=== PATIENT | female | born 1965 | race Caucasian/White ===

== ENCOUNTER 2018-08-03 12:00 | Emergency (ER) | payer BC ==
[2018-08-03] MEDS ORDERED: MORPHINE SULFATE 10 MG/ML VIAL IVP ONE ×2 (12:24→13:27)
[2018-08-03] MEDS ORDERED: ONDANSETRON HCL IV 4 MG/2 ML VIAL IVP ONE (12:24)
--- NOTE | 2018-08-03 12:33 | Emergency Department Record ---
History of Present Illness - General Chief Complaint: Fall Injury Stated Complaint: Fell down 6 stairs Time Seen by Provider: 08/03/18 12:18 Source: Patient Mode of Arrival: Wheelchair Limitations: No limitations - History of Present Illness Initial Comments: The patient is here due to L lower leg pain. She tripped and fell down 5-6 steps just prior to presenting here at [facility]. The patient denies any head or neck injury or pain and is mainly complaining of L ankle pain. She has been unable to weight bear on the L leg due to the ankle pain. She also is having mild L knee pain and R upper back pain by her scapula. She denies any CP, SOB, JAIME, CAPONE, or neck pain and is not on blood thinners. 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[employer] Fall Witnessed: Yes, by family Place Fall Occurred: Home Loss of Consciousness: None Prolonged Down Time?: No Symptoms Prior to Fall: None Severity scale (1-10): 7 Quality: Other Context: Other Associated Symptoms: Unable to walk - Related Data Home Medications Medication Instructions Recorded Confirmed Last Taken Aspirin [Aspir-Low] 81 mg PO DAILY 08/03/18 08/03/18 Unknown Atorvastatin Calcium 40 mg PO DAILY 08/03/18 08/03/18 Unknown Bumetanide [Bumex] 1 mg PO DAILY 08/03/18 08/03/18 Unknown Lisinopril 10 mg PO DAILY 08/03/18 08/03/18 Unknown Metformin HCl 1,000 mg PO BID 08/03/18 08/03/18 Unknown Metoprolol Tartrate 25 mg PO DAILY 08/03/18 08/03/18 Unknown Allergies Allergy/AdvReac Type Severity Reaction Status Date / Time No Known Drug Allergies Allergy Verified 01/01/16 14:16 Travel Screening - Travel/Exposure Within Last 30 Days Have you traveled within the last 30 days?: No Review of Systems Constitutional: Denies: Chills, Fever Eyes: Denies: Eye discharge ENT: Denies: Congestion Respiratory: Denies: Cough, Dyspnea Cardiovascular: Denies: Arrhythmia Endocrine: Denies: Fatigue Gastrointestinal: Denies: Abdominal pain Genitourinary: Denies: Dysuria Musculoskeletal: Reports: Back pain Past Medical History - SOCIAL HISTORY Smoking Status: Never smoker Alcohol Use: None Drug Use: None - RESPIRATORY Hx Respiratory Disorders: Yes 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) - CARDIOVASCULAR Hx Cardio Disorders: Yes Hx Abnormal EKG: Yes (2012) Hx Cardiac Cath: Yes (08/08) Hx Chest Pain: Yes (HX OF CHEST PAIN PRIOR TO HEART ATTACK, NONE SINCE SX) Hx CHF: Yes Hx Deep Vein Thrombosis: Yes (2012) Hx Edema: Yes (ANKLES) Hx Heart Attack: Yes (2012) Hx Hypertension: Yes Hx Coronary Artery Disease: Yes Hx Coronary Artery Bypass Graft: Yes (10/08) Hx Coronary Stent: Yes (07/2013) - NEURO Hx Neuro Disorders: No - GI Hx GI Disorders: No Hx Ulcer: Yes (2011) - Hx Genitourinary Disorders: Yes Hx Kidney Stones: Yes () - ENDOCRINE Hx Endocrine Disorders: No - MUSCULOSKELETAL Hx Musculoskeletal Disorders: Yes Hx Arthritis: Yes (OSTEOARTHRITIS RT KNEE) - PSYCH Hx Psych Problems: No - HEMATOLOGY/ONCOLOGY Hx Hematology/Oncology Disorders: Yes Hx Clotting Problems: Yes (HX: DVT/PE) Hx Unexplained Bleeding: Yes Hx Blood Transfusions: Yes (2012 PRIOR TO CABG) Family Medical History Any Significant Family History?: Yes Family Hx Comment (NOT TO BE USED IN PLACE OF ITEMS BELOW): HEART DISEASE Hx Heart Disease: Father, Mother, Brother/Sister Hx HTN: Father, Mother Physical Exam - General General Appearance: Alert, Oriented x3, Cooperative, No acute distress - Head Head exam: Atraumatic, Normocephalic, Normal inspection - Eye Eye exam: Normal appearance, PERRL, EOMI - Neck Neck exam: Normal inspection, Full ROM. negative: Tenderness - Respiratory Respiratory exam: Normal lung sounds bilaterally, Chest wall tenderness (Over the R superior ribs posteriorly.). negative: Respiratory distress - Cardiovascular Cardiovascular Exam: Regular rate, Normal rhythm, Normal heart sounds - GI/Abdominal GI/Abdominal exam: Soft, Normal bowel sounds. negative: Distended, Rigid, Tenderness - Extremities Extremities exam: Tenderness (There is significant tenderness to palpation over the L ankle medially and knee laterally. ), Other (The L foot is NVI with normal pulses.). negative: Normal inspection Image of Full Body: 1 - Mild pain and tenderness. 2 - Significant pain and tenderness. 3 - Mild pain and tenderness. - Back Back exam: Reports: Normal inspection - Neurological Neurological exam: Abnormal gait, Alert, Oriented X3. negative: Altered, Motor sensory deficit, Normal gait - Psychiatric Psychiatric exam: negative: Anxious - Skin Skin exam: negative: Rash Course Vital Signs 08/03/18 12:06 Temperature 98.6 F Pulse Rate 68 Respiratory 22 Rate Blood Pressure 150/65 Pulse Ox 97 - Reevaluation(s) Reevaluation #1: Due to the unstable L leg fx I do believe the patient will need to see an Orthopedic doctor. The patient would like to go to [facility] so I did discuss the case with Dr. Vasquez in the ER and she does accept the patient in an ER to ER transfer. 08/03/18 13:33 Medical Decision Making - Data Complexity MDM Data: X-Ray Ordered and/or Reviewed - Radiology Data Radiology results: Report reviewed (CXR: Neg for acute changes. L knee: Proximal fibula fx, oblique and mild displacement. L ankle: Medial and posterior malleolus fx's with slight mortise widening.) Disposition Disposition: Transfer Clinical Impression: Leg fracture, left Qualifiers: Encounter type: initial encounter Fracture type: closed Qualified Code(s): S82.92XA - Unspecified fracture of left lower leg, initial encounter for closed fracture Disposition: Acute Care Hospital Transfer Transfer To: [facility] Reason For Transfer: Orthopedics Accepting Physician: Pedro Time Discussed w/Accepting Physician: 13:35 Condition: (2) Stable Forms: Patient Portal Access Time of Disposition: 13:35 Quality - Quality Measures Quality Measures: N/A - Blood Pressure Screening View Details: Yes Does Patient Have Any of the Following: Active Dx of HTN Blood Pressure Classification: Hypertensive Reading Systolic Measurement: 150 Diastolic Measurement: 65 Screening for High Blood Pressure: Patient Exclusion, Hx of HTN [[id number]]
--- NOTE | 2018-08-06 09:51 | RADIOLOGY REPORT ---
EXAM: CHEST, TWO VIEWS HISTORY: PATIENT FELL DOWN SIX STAIRS. PRIOR OPEN HEART SURGERY. TECHNIQUE: AP and lateral sitting semi-upright views of the chest were obtained. Comparison: Two view chest 06/18/18. FINDINGS: Mild cardiomegaly. Postop sternotomy as before. There is some mild diffuse interstitial prominence today, more pronounced than before. Findings may represent some mild interstitial edema. No actual pleural effusion is seen. No pneumothorax evident and no acute alveolar infiltrate is seen. Hypertrophic spurring in the mid to lower thoracic spine. IMPRESSION: 1. POSTOP STERNOTOMY BEFORE. 2. MILD CARDIOMEGALY WITH MILD DIFFUSE INTERSTITIAL PROMINENCE COULD REPRESENT SOME MILD INTERSTITIAL EDEMA. NO ACUTE ALVEOLAR INFILTRATE SEEN. JOB NUMBER: [id number] MTDD
--- NOTE | 2018-08-06 10:13 | RADIOLOGY REPORT ---
EXAM: LEFT ANKLE HISTORY: ACUTE LEFT ANKLE AND LEFT KNEE PAIN, PATIENT FELL DOWN STAIRS. TECHNIQUE: Three views of the left ankle were obtained. Comparison: None. Encounter: Initial. FINDINGS: There is a comminuted and mildly displaced fracture of the medial malleolus with the major malleolar fracture fragment displaced slightly laterally. There appears to be corresponding slight lateral subluxation of the talus on the tibia suggesting some significant ligamentous injury at the ankle as well. Questionable undisplaced posterior malleolar fracture. No lateral malleolar fracture evident. Calcaneal spurs both posteriorly and along the plantar surface. Diffuse soft tissue swelling at the ankle. IMPRESSION: 1. COMMINUTED MILDLY DISPLACED FRACTURE OF THE MEDIAL MALLEOLUS. 2. MILD LATERAL SUBLUXATION OF THE TALUS ON THE TIBIA. 3. QUESTIONABLE UNDISPLACED POSTERIOR MALLEOLAR FRACTURE. 4. DIFFUSE SOFT TISSUE SWELLING. JOB NUMBER: [id number] MTDD
--- NOTE | 2018-08-06 10:26 | RADIOLOGY REPORT ---
EXAM: LEFT KNEE HISTORY: PATIENT FELL DOWN SEVERAL STAIRS WITH LEFT KNEE PAIN. TECHNIQUE: AP and lateral views of the left knee were obtained with a total of five images obtained in the AP and lateral projections. Comparison: No prior left knee series. Encounter: Initial. FINDINGS: Note is made of an oblique fracture of the upper shaft of the fibula with slight anterior displacement of the distal fibular fracture fragment by about 5 mm. No fracture of the proximal tibia seen. Lateral views are rotated and the AP views are centered relatively low with resulting somewhat poor visualization of the knee joint itself. No definite fracture of the femur or patella seen, but a routine complete left knee series centered at the knee would be useful to more fully evaluate the femur in particular. Prominent diffuse soft tissue is presumably chronic for the patient. This limits evaluation for joint effusion. Some surgical clips along the medial aspect of the left knee. IMPRESSION: 1. LIMITED AP AND LATERAL STUDY CENTERED QUITE LOW ON THE AP VIEWS AND ROTATED ON THE LATERALS. 2. OBLIQUE MINIMALLY DISPLACED FRACTURE UPPER FIBULAR SHAFT. 3. SURGICAL CLIPS IN THE SOFT TISSUES OF THE KNEE MEDIALLY. JOB NUMBER: [id number] MTDD
== END 2018-08-03 14:09 | disposition short-term general hospital (02) ==
LOC: ER 12:00
DX: S82.832A Other fracture of upper and lower end of left fibula, initial encounter for closed fracture (principal); S82.842A Displaced bimalleolar fracture of left lower leg, initial encounter for closed fracture; M54.6 Pain in thoracic spine; R07.89 Other chest pain; W10.9XXA Fall (on) (from) unspecified stairs and steps, initial encounter; Y92.009 Unspecified place in unspecified non-institutional (private) residence as the place of occurrence of the external cause; I10 Essential (primary) hypertension; E11.9 Type 2 diabetes mellitus without complications; I25.2 Old myocardial infarction; Z79.84 Long term (current) use of oral hypoglycemic drugs
CPT/HCPCS: 29505; 99285 ×2; 96376; 96374; 96375; 73610; 71046; 73562; J2405; J2270